=== PATIENT | male | born 1995 | race Caucasian/White ===

== ENCOUNTER 2017-10-08 21:04 | Emergency (ER) | payer SELFPAY ==
[2017-10-08] MEDS ORDERED: Ketorolac Tromethamine 60 MG/2 ML VIAL ONE (21:36)
[2017-10-08] MEDS ORDERED: Acetaminophen 500 MG TAB ONE (21:36)
[2017-10-08 21:46] LABS: Bilirubin Negative (Negative); Blood, Urine Negative (Negative); Clarity Clear (Clear); Glucose, Urine (Dipstick) Negative (Negative); Leukocyte Negative (Negative); Nitrite Negative (Negative); Protein, Urine (Dipstick) Trace mg/dL (Neg-Trace); pH, Urine 7.5 (5.0-9.0)
--- NOTE | 2017-10-08 22:01 | CT ---
CT ABDOMEN AND PELVIS WITHOUT CONTRAST 10/08/17 HISTORY: Right side flank pain Absence of oral and IV contrast reduces the sensitivity for the exam particularly for evaluation of s olid organs and bowel. Lung bases are clear. No calcified gallstones are clear. The left No free air or pelvis. A normal appendix is present. There is fecal material in the colon. No calculi is seen in the kidneys, ureters, or the urinary bladder. No hydroureteronephrosis is noted on either side. IMPRESSION: 1. No CT evidence of urinary tract calculi or obstruction. 2. Splenomegaly. [place]: [facility] [place]
[2017-10-08] MEDS ORDERED: Oseltamivir 75 MG CAP ONE (22:13)
== END 2017-10-08 22:27 | disposition home or self-care (01) ==
LOC: MADERS 21:04
DX: R10.31 Right lower quadrant pain (principal); J11.1 Influenza due to unidentified influenza virus with other respiratory manifestations
CPT/HCPCS: 74176; 81003; 96372; J1885